=== PATIENT | male | born 1985 | race Hispanic/Latino ===

== ENCOUNTER 2017-01-14 22:57 | Emergency (ER) | payer OTHER ==
[2017-01-14 23:10] VITALS: BP 126/76; PULSE 78; RESP 16; TEMP 98; O2SAT 99
[2017-01-14] MEDS ORDERED: Sodium Chloride 0.9% 1,000 ML IV STA (23:40)
[2017-01-14] MEDS ORDERED: Iohexol 240 (50 ml) PO ONE (23:40)
[2017-01-15] MEDS ORDERED: Iohexol 240 (50 ml) ONE (00:01)
[2017-01-15 00:11] LABS: BASO % 0.4 % (0.0-2.0); EOS # 0.1 K/uL (0.0-0.7); EOS % 1.3 % (0.0-4.0); HEMATOCRIT 43.3 % (35.0-51.0); LYMPH # 1.3 K/uL (1.0-4.3); MEAN CELL VOLUME 83.7 fl (80.0-94.0); MEAN CORPUSCULAR HEMOGLOBIN 28.3 pg (27.0-31.0); MEAN CORPUSCULAR HGB CONC 33.8 g/dL (33.0-37.0); MEAN PLATELET VOLUME 7.5 fl (7.2-11.7); MONO # 0.6 K/uL (0.0-0.8); MONO % 8.4 % (0.0-10.0); NEUT # 4.8 K/uL (1.8-7.0); NEUT % 70.9 % (50.0-75.0); RED CELL DISTRIBUTION WIDTH 12.9 % (11.5-14.5); WHITE BLOOD COUNT 6.8 K/uL (4.8-10.8)
[2017-01-15 00:20] LABS: ALB/GLOB RATIO 1.5 (1.0-2.1); ALKALINE PHOSPHATASE 52 U/L (38-126); ALT/SGPT 40 U/L (21-72); AST/SGOT 29 U/L (17-59); BILIRUBIN,TOTAL 1.4 mg/dl (0.2-1.3); BLOOD UREA NITROGEN 12 mg/dl (9-20); CALCIUM 9.3 mg/dL (8.4-10.2); CARBON DIOXIDE 29 mmol/L (22-30); CHLORIDE 96 mmol/L (98-107); GFR AFRICAN-AMERICAN > 60; GLUCOSE,RANDOM 97 mg/dL (75-110); LIPASE 29 U/L (23-300); SODIUM 141 mmol/l (132-148); TOTAL PROTEIN 7.3 G/DL (6.3-8.2)
[2017-01-15 00:32] LABS: PARTIAL THROMBOPLASTIN TIME 27.6 SECONDS (23.3-32.5)
--- NOTE | 2017-01-15 00:57 | ED PDOC ---
HPI: Abdomen Time Seen by Provider: 01/14/17 23:21 Chief Complaint (Nursing): Abdominal Pain Chief Complaint (Provider): abdominal pain, fever, chills History Per: Patient History/Exam Limitations: no limitations Onset/Duration Of Symptoms: Days (2) Outside of [place] travel?: No Current Symptoms Are (Timing): Still Present Additional Complaint(s): 31yo male with no PMHx presents to the ED with c/o abd pain, fever, and chills. Patient reports he has had fever and chills for 2 days with abd pain today. Reports abd pain is generalized, but worse in lower abdomen with mild nausea and loss of appetite. No vomiting, diarrhea. Notes bloating sensation to abdomen at time worse when he walks. Past Medical History Reviewed: Historical Data, Nursing Documentation, Vital Signs Vital Signs: Last Vital Signs Temp 98.0 F 01/14/17 23:07 Pulse 78 01/14/17 23:07 Resp 16 01/14/17 23:07 BP 126/76 01/14/17 23:07 Pulse Ox 99 01/15/17 01:03 - Medical History PMH: No Chronic Diseases - Surgical History Other surgeries: right eye - Family History Family History: States: No Known Family Hx - Social History Current smoker - smoking cessation education provided: No Alcohol: None Drugs: Denies - Home Medications Home Medications: Ambulatory Orders Medication Instructions Recorded Dicyclomine [Bentyl] 20 mg PO Q12 PRN #20 tab 01/15/17 Ondansetron ODT [Zofran ODT] 4 mg PO Q6 PRN #16 odt 01/15/17 - Allergies Allergies/Adverse Reactions: Allergies Allergy/AdvReac Type Severity Reaction Status Date / Time Penicillins Allergy RASH Verified 01/14/17 23:06 Review of Systems ROS Statement: Except As Marked, All Systems Reviewed And Found Negative Constitutional: Positive for: Fever, Chills, Other (loss of appetite, bloating sensation ) Gastrointestinal: Positive for: Nausea, Abdominal Pain. Negative for: Vomiting , Diarrhea Physical Exam - Reviewed Nursing Documentation Reviewed: Yes Vital Signs Reviewed: Yes - Physical Exam Appears: Positive for: Well, No Acute Distress Head Exam: Positive for: ATRAUMATIC, NORMAL INSPECTION, NORMOCEPHALIC Skin: Positive for: Normal Color, Warm, Dry Eye Exam: Positive for: Normal appearance, EOMI, PERRL ENT: Positive for: Normal ENT Inspection Neck: Positive for: Normal, Painless ROM, Supple Cardiovascular/Chest: Positive for: Regular Rate, Rhythm. Negative for: Murmur , Tachycardia Respiratory: Positive for: Normal Breath Sounds. Negative for: Wheezing, Respiratory Distress Gastrointestinal/Abdominal: Positive for: Bowel Sounds, Soft, Tenderness ( diffuse ). Negative for: Guarding, Rebound Back: Positive for: Normal Inspection. Negative for: L CVA Tenderness, R CVA Tenderness Extremity: Positive for: Normal ROM. Negative for: Deformity, Swelling Neurologic/Psych: Positive for: Alert, Oriented. Negative for: Motor/Sensory Deficits - Laboratory Results Result Diagrams: 01/14/17 00:05 01/14/17 00:05 - ECG O2 Sat by Pulse Oximetry: 99 Pulse Ox Interpretation: Normal (RA) Medical Decision Making Medical Decision Makin: Impression: 31yo male w/ abd pain, nausea, loss of appetite Plan: Patient declines IV analgesia at present time. CT A/P Labs IVF flu swab reassess 0232: CT A/P impression: 1. There is mild gastric distention with faint contrast material which may reflect recent ingestion. Gastric atony or relative outlet obstruction are not excluded. 2. Numerous borderline central mesenteric nodes, greater than expected for age and may reflect mesenteric adenitis. 0300: Labs reviewed, show no clinically significant abnormalities. Patient reports significant improvement in symptoms and is stable for d/c. Dx: abd pain, mesenteric adenitis, flu-like symptoms f/u PCP 1-2 days Scribe Attestation: Documented by Sanya Delgado acting as a scribe for Mykel Noriega MD. Provider Scribe Attestation: All medical record entries made by the Scribe were at my direction and personally dictated by me. I have reviewed the chart and agree that the record accurately reflects my personal performance of the history, physical exam, medical decision making, and the department course for this patient. I have also personally directed, reviewed, and agree with the discharge instructions and disposition. Disposition - Clinical Impression Clinical Impression: Abdominal pain, Influenza-like illness, Mesenteric adenitis - Patient ED Disposition Is Patient to be Admitted: No Counseled Patient/Family Regarding: Studies Performed, Diagnosis, Need For Followup - Disposition Disposition: Routine/Home Disposition Time: 03:00 Condition: STABLE Additional Instructions: Please return for any worsening in condition Follow up with your doctor in 1-2 days Prescriptions: Dicyclomine [Bentyl] 20 mg PO Q12 PRN #20 tab PRN Reason: abdominal pain Ondansetron ODT [Zofran ODT] 4 mg PO Q6 PRN #16 odt PRN Reason: Nausea/Vomiting Instructions: Abdominal Pain (ED), Mesenteric Adenitis (ED)
[2017-01-15] MEDS ORDERED: Sodium Chloride 0.9% 50 ML IV ONE (01:32)
[2017-01-15] MEDS ORDERED: Iohexol 300 100 ML IJ ONE (01:32)
--- NOTE | 2017-01-15 09:23 | CT ---
PROCEDURE: CT Abdomen and pelvis dated 01/15/2017. HISTORY: abd pain COMPARISON: None. TECHNIQUE: Contiguous axial images of the abdomen and pelvis pelvis performed in standard fashion following oral and intravenous injection of approximately 95 cc of Omnipaque 300 contrast material. . Coronal and Sagittal reformats generated. Radiation dose: Total exam DLP = 752.93 mGy-cm. FINDINGS: LOWER THORAX: Lung bases clear. No infiltrate effusion or basilar pneumothorax. There is tiny hiatal hernia. Heart size within range of normal. No significant pericardial effusion. LIVER: Liver is upper limits of normal in size borderline enlarged measuring approximately 18 cm in CC dimension. Mild diffuse fatty hepatic infiltration. There are 2 tiny (sub cm) focal areas of low attenuation left lobe liver that are of uncertain etiology though may represent small hemangiomas or possibly cysts. Followup at interval could be performed to assess stability. Portal and splenic veins are opacified. . GALLBLADDER AND BILE DUCTS: Gallbladder is physiologically distended. No evidence of intraluminal gallbladder calculi. PANCREAS: Unremarkable. No mass. No ductal dilatation. SPLEEN: Spleen is enlarged measuring approximately 14.2 cm in AP dimension. No splenic mass collection or calcification. ADRENALS: No adrenal lesions. . KIDNEYS AND URETERS: Kidneys exhibit symmetric nephrograms. No evidence of nephrolithiasis or hydronephrosis. BLADDER: Urinary bladder is physiologically distended. No evidence of intraluminal urinary bladder calculi. REPRODUCTIVE: Prostate gland measures approximately 4.4 cm in transverse dimension. APPENDIX: Evaluation of the bowel is somewhat limited due to incomplete opacification. Normal-appearing appendix. BOWEL: Evaluation of the bowel is somewhat limited due to incomplete opacification. The stomach is moderately distended with food debris liquid contrast and air however there is no evidence of gastric outlet obstruction with oral contrast material extending into the large bowel to the level of the rectum. Stool air and contrast seen throughout the colon. . The sigmoid colon exhibits minimal wall thickening which could be due to underdistention peristalsis and under opacified stool. PERITONEUM: No evidence of free intraperitoneal air. No free or loculated fluid collections. LYMPH NODES: Multiple small nonspecific mesenteric lymph nodes are present VASCULATURE: Unremarkable. No aortic aneurysm. BONES: No fracture or destructive lesion. OTHER FINDINGS: None. IMPRESSION: Multiple small mesenteric lymph nodes nonspecific. Rule out mesenteric adenitis. Mild splenomegaly. Mild fatty hepatic infiltration. Borderline- hepatomegaly. There are at least 2 sub cm low-attenuation foci left lobe liver too small to characterize though could represent small hemangiomas or cysts. Followup interval could be performed to assess stability.
== END 2017-01-15 03:27 | disposition home or self-care (01) ==
LOC: H.ER 22:57
DX: I88.0 Nonspecific mesenteric lymphadenitis (principal); R10.9 Unspecified abdominal pain